=== PATIENT | female | born 1985 | race Caucasian/White ===

== ENCOUNTER 2020-06-20 11:59 | Emergency (ER) | payer OTHER ==
--- NOTE | 2020-06-20 12:45 | EDM.PDOC ---
ED HPI GENERAL MEDICAL PROBLEM - General Chief Complaint: ENT Problem Stated Complaint: SINUS INFECTION Time Seen by Provider: 06/20/20 12:20 Source of Information: Reports: Patient, RN, RN Notes Reviewed History Limitations: Reports: No Limitations - History of Present Illness INITIAL COMMENTS - FREE TEXT/NARRATIVE: Patient presents to the ED via personal vehicle with complaints of sinus pressure, sinus pain, and clear nasal drainage. She states these symptoms began on 06/18/2020 and have progressively worsened over that time. She attests to a history of similar symptoms in February of this year, but they spontaneously improved over time without treatment. She does voice concerns of COVID infection; she denies history of a COVID infection and does not believe she has been in contact with individuals with a known active COVID infection. She denies fever, shaking chills, headache, vision changes, shortness of breath, nausea, or vomiting. She attest to recent cough, sore throat, and post-nasal drip that was present on 06/18/2020, but has since improved. She denies a history of asthma or seasonal allergies. She denies use of tobacco, alcohol, or recreational drugs. - Related Data Allergies Allergy/AdvReac Type Severity Reaction Status Date / Time No Known Allergies Allergy Verified 06/20/20 12:26 Home Meds: Home Meds Amphetamine/Dextroamphetamine [Adderall] 1 tab PO DAILY 06/20/20 [History] Sertraline [Zoloft] 2 tab PO DAILY 06/20/20 [History] lamoTRIgine [Lamictal XR] 1 tab PO DAILY 06/20/20 [History] Past Medical History HEENT History: Reports: None Cardiovascular History: Reports: None Respiratory History: Reports: None Gastrointestinal History: Reports: None Genitourinary History: Reports: None [employer] History: Reports: None Musculoskeletal History: Reports: None Neurological History: Reports: None Psychiatric History: Reports: Anxiety, Depression Endocrine/Metabolic History: Reports: None Hematologic History: Reports: None Immunologic History: Reports: None Oncologic (Cancer) History: Reports: None Dermatologic History: Reports: None - Infectious Disease History Infectious Disease History: Reports: TB - Past Surgical History Head Surgeries/Procedures: Reports: None Social & Family History - Family History Family Medical History: No Pertinent Family History - Tobacco Use Tobacco Use Status *Q: Never Tobacco User - Caffeine Use Caffeine Use: Reports: Coffee - Recreational Drug Use Recreational Drug Use: No ED ROS ENT - Review of Systems Review Of Systems: Comprehensive ROS is negative, except as noted in HPI. ED EXAM, ENT - Physical Exam Exam: See Below Exam Limited By: No Limitations General Appearance: Alert, WD/WN, No Apparent Distress Eye Exam: Bilateral Eye: EOMI, Normal Inspection, PERRL (4mm) Ears: Normal External Exam, Normal Canal, Hearing Grossly Normal, Normal TMs. No: TM Bulging, TM Dullness, TM Erythema, TM Blood, TM Fluid Nose: Clear Rhinorrhea, Nasal Swelling, Nasal Tenderness, Injected Turbinates. No: Septal Deformity, Septal Hematoma, Septal Perforation, Active Bleeding Mouth/Throat: Normal Inspection, Normal Gums, Normal Lips, Normal Oropharynx, Normal Teeth. No: Pharyngeal Erythema, Throat Pain, Throat Swelling, Tongue Swelling, Tonsillar Erythema, Tonsillar Exudates, Tonsillar Swelling Head: Atraumatic, Normocephalic, Facial Tenderness, Sinus Tenderness, Other (Tenderness in sinuses when clenching jaw) Neck: Normal Inspection, Non-Tender, Full Range of Motion, Lymphadenopathy (L), Lymphadenopathy (R) Respiratory/Chest: No Accessory Muscle Use, Chest Non-Tender, Wheezing (To bilateral upper lobes ) Cardiovascular: Normal Peripheral Pulses, Regular Rate, Rhythm, No Edema, No Gallop, No JVD, No Murmur, No Rub Neurological: Alert, Oriented, CN II-XII Intact, Normal Cognition, Normal Gait, No Motor/Sensory Deficits Psychiatric: Normal Affect, Normal Mood Skin: Warm, Dry, Intact, Normal Color, No Rash Course - Vital Signs Last Recorded V/S: Last Vital Signs Temp 97.3 F 06/20/20 12:10 Pulse 100 06/20/20 12:10 Resp 16 06/20/20 12:10 BP 127/68 06/20/20 12:10 Pulse Ox 98 06/20/20 12:10 - Orders/Labs/Meds Labs: Laboratory Tests 06/20/20 Range/Units 12:15 SARS-CoV-2 RNA (DEBBI) Negative (NEGATIVE) - Re-Assessments/Exams Free Text/Narrative Re-Assessment/Exam: 06/20/20 COVID swab negative. Given wheezes on physical exam, will treat empirically with Augmentin DS x7 days. Red flag signs and symptoms which would warrant r eevaluation discussed. Patient verbalized understanding and agreement with the plan of care. Departure - Departure Time of Disposition: 13:22 Disposition: Home, Self-Care 01 Condition: Good Clinical Impression: Sinusitis Qualifiers: Sinusitis location: unspecified location Chronicity: acute Recurrence: non- recurrent Qualified Code(s): J01.90 - Acute sinusitis, unspecified - Discharge Information *PRESCRIPTION DRUG MONITORING PROGRAM REVIEWED*: Not Applicable *COPY OF PRESCRIPTION DRUG MONITORING REPORT IN PATIENT ARELIS: Not Applicable Instructions: Sinusitis, Adult, [id number] Forms: ED Department Discharge Additional Instructions: Rx: Augmentin 1.) Take all of your antibiotic until it is gone, even as your symptoms improve. 2.) This antibiotic may cause loose bowel movements, take a probiotic or eat yogurt to help with these symptoms. 3.) You may take acetaminophen (Tylenol) 650mg every six hours. You may take ibuprofen (Advil/Motrin) 400mg every six hours. You may stagger these medications so you are taking a dose of medicine every three hours. 4.) Drink plenty of fluids to stay hydrated and keep nasal secretions loose. 5.) Follow up with your primary care provider or return to the emergency department with any fever, shaking chills, or worsening symptoms following 48 hours of antibiotic treatment. Sepsis Event Note (ED) - Evaluation Sepsis Screening Result: No Definite Risk - Focused Exam Vital Signs: Vital Signs Temp Pulse Resp BP Pulse Ox 06/20/20 12:10 97.3 F 100 16 127/68 98
== END 2020-06-20 13:30 | disposition home or self-care (01) ==
LOC: DL.ED 11:59
DX: J01.90 Acute sinusitis, unspecified (principal); F41.9 Anxiety disorder, unspecified; F32.9 Major depressive disorder, single episode, unspecified; Z20.828 Contact with and (suspected) exposure to other viral communicable diseases; Z79.899 Other long term (current) drug therapy
CPT/HCPCS: 99283; U0002